=== PATIENT | female | born 2005 | race Caucasian/White ===

== ENCOUNTER 2025-07-19 19:36 | Emergency (ER) | payer OTHER ==
[2025-07-19] MEDS ORDERED: Prochlorperazine 10 MG/2 ML VIAL ONE (21:17)
[2025-07-19] MEDS ORDERED: diphenhydrAMINE 25 MG CAP ONE (21:18)
[2025-07-19 21:34] LABS: Glucose, Urine (Dipstick) Normal (Negative); Leukocyte 100 (Negative); Protein, Urine (Dipstick) 30 mg/dl (Neg-Trace); Specific Gravity, Urine 1.020 (1.005-1.030)
[2025-07-19 21:35] LABS: Pregnancy Test - Urine (BHCG) Negative (Negative); Pregu Control Background? CLEAR/WHITE (CLR/WHITE); Pregu Control Bar Appear? YES (CONTROL BAR)
[2025-07-19 21:53] LABS: Bacteria/HPF 1+ HPF (None Seen); CAUTI Indications for Culture Pelvic or flank pain; RBC/HPF 0-3 HPF (0-3); WBC/HPF 0-3 HPF (0-3)
[2025-07-19 21:54] LABS: Urine Culture Reflex No No
[2025-07-19] MEDS ORDERED: cefTRIAXone (ROCEPHIN) 1 GM VIAL ONE (22:24)
== END 2025-07-19 22:49 | disposition home or self-care (01) ==
LOC: CSHERS 19:36
DX: K52.9 Noninfective gastroenteritis and colitis, unspecified (principal); E86.0 Dehydration; N39.0 Urinary tract infection, site not specified
CPT/HCPCS: 74176; 81001; 81025; 87428; 96372; J0696; J0780